=== PATIENT | male | born 1970 | race Caucasian/White ===

== ENCOUNTER → 2018-01-26 21:47 | Outpatient (CLI) | payer OTHER, SELFPAY ==
[2018-01-26 19:49] VITALS: BMI 30.7
[2018-01-29 13:28] LABS: ANTINUCLEAR ANTIBODIES DIRECT Negative (Negative)
== END ==
PROVIDERS: Referring Provider Nurse Practitioner; Visit Provider Nurse Practitioner
DX: L30.8 Other specified dermatitis (principal); L40.9 Psoriasis, unspecified
CPT/HCPCS: 84443; 86038; 86225; 86235